=== PATIENT | male | born 1960 | race Caucasian/White ===

== ENCOUNTER 2018-10-23 14:12 | Emergency (ER) | payer BC, OTHER ==
--- NOTE | 2018-10-23 14:17 | PDOC ---
Attending Attestation - Resident Resident Name: Maximo Gallagher - ED Attending Attestation I have performed the following: I have examined & evaluated the patient, The case was reviewed & discussed with the resident, I agree w/resident's findings & plan, Exceptions are as noted - HPI HPI: 10/23/18 14:31 57 year old male c/ hx of psoriasis on immunosuppresants p/w fever and tachycardia today. ~1 week ago, scratched the right anterior mckeon on an object. Saw an urgent care and was prescribed bactrim. The cellulitis on R leg improved drastically. However, since yesterday, started to develop fevers, chills, body aches. Denies cough, nausea, vomiting, diarrhea, dysuria. - Physicial Exam PE: 10/23/18 14:58 GENERAL: Awake, alert, and fully oriented, in no acute distress HEAD: No signs of trauma EYES:EOMI, sclera anicteric, conjunctiva clear ENT: Auricles normal inspection, hearing grossly normal, nares patent, NECK: Normal ROM, supple, LUNGS: Breath sounds equal, clear to auscultation bilaterally. No wheezes, and no crackles HEART: Regular rate and rhythm, normal S1 and S2, no murmurs, rubs or gallops ABDOMEN: Soft, nontender, No guarding, no rebound. No masses EXTREMITIES: Normal range of motion, no edema. No clubbing or cyanosis. No cords, erythema, or tenderness NEUROLOGICAL: Cranial nerves II through XII grossly intact. Normal speech, normal gait SKIN: Warm, Dry, normal turgor, no rashes or lesions noted. RLE with well-healed wound on right anterior mckeon. - Medical Decision Making 10/23/18 14:58 Vital Signs Temp Pulse Resp BP Pulse Ox 102.4 F H 130 H 20 180/103 H 100 10/23/18 14:14 10/23/18 14:14 10/23/18 14:14 10/23/18 14:14 10/23/18 14:14 Differential: influenza, viral syndrome, bactermia, URI I agree with resident's plan. Sepsis protocol, IVF, and empiric antibiotics. Chest xray, labs, and reassess. 10/23/18 15:25 Chest xray reviewed by me, pending official radiology read. No infiltrates. CBC, BMP 10/23/18 14:40 10/23/18 14:40 CMP Sodium 133 mmol/L (136-145) L 10/23/18 14:40 Potassium 4.4 mmol/L (3.5-5.1) 10/23/18 14:40 Chloride 98 mmol/L (98-107) 10/23/18 14:40 Carbon Dioxide 25 mmol/L (22-28) 10/23/18 14:40 Anion Gap 10 MMOL/L (8-16) 10/23/18 14:40 BUN 15 mg/dl (7-18) 10/23/18 14:40 Creatinine 1.3 mg/dl (0.6-1.3) 10/23/18 14:40 Creat Clearance w eGFR 56.70 (>60) 10/23/18 14:40 Random Glucose 110 mg/dl (74-106) H D 10/23/18 14:40 Calcium 9.1 mg/dl (8.4-10.2) 10/23/18 14:40 Total Bilirubin 0.8 mg/dl (0.2-1.0) 10/23/18 14:40 AST 48 U/L (10-42) H D 10/23/18 14:40 ALT 42 U/L (10-40) H D 10/23/18 14:40 Alkaline Phosphatase 75 U/L (32-92) 10/23/18 14:40 Total Protein 7.7 g/dl (6.4-8.3) 10/23/18 14:40 Albumin 4.5 g/dl (3.5-5.0) 10/23/18 14:40 10/23/18 17:09 Urine Test Results Urine Color [place] 10/23/18 15:00 Urine Appearance Clear 10/23/18 15:00 Urine pH 7.0 (4.5-8) 10/23/18 15:00 Ur Specific [place] 1.020 (1.010-1.035) 10/23/18 15:00 Urine Protein Negative (NEGATIVE) 10/23/18 15:00 Urine Glucose (UA) Negative (NEGATIVE) 10/23/18 15:00 Urine Ketones Negative (NEGATIVE) 10/23/18 15:00 Urine Blood 1+ (NEGATIVE) H 10/23/18 15:00 Urine Nitrite Negative (NEGATIVE) 10/23/18 15:00 Urine Bilirubin Negative (NEGATIVE) 10/23/18 15:00 Ur Leukocyte Esterase Negative (NEGATIVE) 10/23/18 15:00 Influenza swab negative. After 2L of IVF and improving his fevers, pt continues to be tachycardia. Because he is immunosuppressed, and have abnormal VS, pt is high risk for bactermia and sepsis, and should be admitted for IV antibiotics and to allow cultures to grow. 10/23/18 18:23 After a lengthy discussion with the patient by the physician team and nursing team, the patient was ultimately very concerned about his high deductibles. Despite this discussion, the patient would like to leave AMA and see how he feels at home. The patient has capacity to make this decision. Will allow him to AMA with augmentin and have him return to ED for any concerning new findings. Heart Score/ECG Review #1 ECG reviewed & interpreted by me at: 14:15 10/23/18 14:17 NSR 114, no std/sona, normal axis, normal intervals, QTC 410 msec
[2018-10-23] MEDS ORDERED: SODIUM CHLORIDE 1,000 ML IV STA ×2 (14:20→15:30)
[2018-10-23] MEDS ORDERED: VANCOMYCIN 1,250 MG in DEXTROSE 5%-WATER - 250 ML IVPB ONE (14:20)
[2018-10-23] MEDS ORDERED: ACETAMINOPHEN 1000 MG/100 ML VIAL (NON FORMULARY) IVPB ONE (14:20)
[2018-10-23] MEDS ORDERED: PIPERACILLIN/TAZOB 4.5 GM 4.5 GM in DEXTROSE 5%-WATER 100 ML IVPB ONE (14:20)
[2018-10-23 14:22] VITALS: BMI 28.8
--- NOTE | 2018-10-23 14:29 | PDOC ---
History of Present Illness - General Chief Complaint: Tachycardia Stated Complaint: FEVER, HEART RACING, PAIN Time Seen by Provider: 10/23/18 14:15 - History of Present Illness Initial Comments: 10/23/18 14:24 The patient is a 57 year old male with a history of psoriasis who presents for evaluation of fever, body aches and a racing heart. The patient notes that he recently started on cosentyx several weeks ago. He noted last week a wound to his right leg and was started on bactrim by an urgent care. However 1 day ago he began experiencing complete body aches with associated fever and sensation of a racing heart prompting his presentation to the ED for further evaluation. He denies any known sick contacts as well as SOB, cough, chest pain, nausea, vomiting, abdominal pain, or changes with urination or bowel movements. Past History - Past Medical History Allergies/Adverse Reactions: Allergies Allergy/AdvReac Type Severity Reaction Status Date / Time No Known Allergies Allergy Verified 10/23/18 14:17 Home Medications: Ambulatory Orders Amox-Tr/K Cl [Augmentin - 875Mg Tablet] 1 tab PO BID #14 tablet 10/23/18 Secukinumab [Cosentyx Pen] 150 mg SQ ASDIR 10/23/18 Sulfamethoxazole/Trimethoprim [Bactrim Ds Tablet] 1 each PO BID 10/23/18 COPD: No Other medical history: PSORIASIS - Suicide/Smoking/Psychosocial Hx Smoking Status: No Smoking History: Former smoker Have you smoked in the past 12 months: No Number of Cigarettes Smoked Daily: 0 If you are a former smoker, when did you quit?: 2005 Information on smoking cessation initiated: No Hx Alcohol Use: Yes (WEEKENDS) Drug/Substance Use Hx: No Substance Use Type: None Hx Substance Use Treatment: No Review of Systems - Review of Systems Comments:: 10/23/18 14:27 Constitutional: Fever, Body aches, Fatigue. HEENT: No Rhinorrhea, nasal congestion, visual changes Cardiovascular: Racing Heart. No chest pain, syncope, lightheadedness Respiratory: No Cough, SOB, Hemoptysis, Gastrointestinal: No Abdominal pain, Nausea, Vomiting, Constipation, Diarrhea, Melena Genitourinary: No Dysuria, Frequency, Urgency, Hesitancy, Hematuria, Flank pain Musculoskeletal: No Myalgia, arthralgia Skin: No rashes, itching, bruising, pallor Neurologic: No Headache, Dizziness, Numbness, Weakness, or Tingling Psychiatric: No Hallucinations. No SI or HI *Physical Exam - Vital Signs Last Vital Signs Temp Pulse Resp BP Pulse Ox 102.4 F H 130 H 20 180/103 H 100 10/23/18 14:14 10/23/18 14:14 10/23/18 14:14 10/23/18 14:14 10/23/18 14:14 - Physical Exam Comments: 10/23/18 14:28 General Appearance: Nourished. No Apparent Distress HEENT: No Pharyngeal Erythema, Tonsillar Exudate, Tonsillar Erythema Neck: No Cervical Lymphadenopathy Respiratory/Chest: Lungs Clear, Normal Breath Sounds. No Crackles, Rales, Rhonchi, Wheezing Cardiovascular: Regular Rhythm, Tachycardic Rate. No Murmur, Gallops, Rubs Gastrointestinal/Abdominal: Normal Bowel Sounds, Soft. No Guarding, Rebound, Tenderness Musculoskeletal: No CVA Tenderness Extremity: Small scab to the right lower mckeon without area of erythema or warmth. Normal Capillary Refill Integumentary: Normal Color, Dry, Warm Neurologic: Fully Oriented, Alert, Normal Mood/Affect, Normal Response, Moderate Sedation - Procedure Monitoring Vital Signs: Procedure Monitoring Vital Signs Temperature 102.4 F H 10/23/18 14:14 Pulse Rate 130 H 10/23/18 14:14 Respiratory Rate 20 10/23/18 14:14 Blood Pressure 180/103 H 10/23/18 14:14 O2 Sat by Pulse Oximetry (%) 100 10/23/18 14:14 Heart Score/ECG Review #1 ECG reviewed & interpreted by me at: 14:23 General ECG Interpretation: Sinus Rhythm, Normal Intervals, No acute ischemic changes 10/23/18 14:23 Sinus Tachycardia HR 114 ED Treatment Course - LABORATORY CBC & Chemistry Diagram: 10/23/18 14:40 10/23/18 14:40 - RADIOLOGY Radiology Studies Ordered: Category Date Time Status CHEST X-RAY PORTABLE* [RAD] Stat Radiology 10/23/18 14:18 Ordered Medical Decision Making - Medical Decision Making 10/23/18 14:29 The patient is a 57 year old male with a history of psoriasis who presents for evaluation of fever, body aches and a racing heart. Differential includes but is not limited to: Influenza, Sepsis, Infectious, Metabolic Derangement. Given the patient's history and physical exam, we will obtain a cbc, cmp, troponin, lactate, vbg, ua, urine cultures, blood culture, influenza swab, ekg, chest plain film to evaluate further. We will treat with iv fluids, tylenol, vanc, zosyn as the patient is immunosuppressed due to the patient's cosentyx and continue to monitor and reassess while here in the ED. 10/23/18 17:35 CBC, cmp, troponin, lactate is unremarkable. UA is unremarkable. Influenza is negative. The patient has remained persistently tachycardic despite reduction in his fever and 2L iv hydration. Given the patient's fever of unknown source and persistent vital sign abnormality, we believe he requires observation admission for further management. We discussed the case with the admitting team who accepted the patient for admission. 10/23/18 18:25 The patient insists on leaving the emergency dept and is signing out against medical advice. The patient understands the risks and complications that may result from the refusal of medical care and admission which includes and permanent disability. The patient has the mental capacity of understanding the risks of refusing care and is capable of making an informed decision. The patient was instructed to return to the emergency department should he change his mind regarding medical care or should his condition worsen. The patient will be provided with augmentin for home antibiotic use and he states that he will return to the ED tomorrow for re-eval. The patient signed the Against Medical Advice form. *DC/Admit/Observation/Transfer Diagnosis at time of Disposition: Tachycardia Fever Qualifiers: Fever type: unspecified Qualified Code(s): R50.9 - Fever, unspecified - Discharge Dispostion Disposition: AGAINST MEDICAL ADVICE Condition at time of disposition: Stable - Prescriptions Prescriptions: Amox-Tr/K Cl [Augmentin - 875Mg Tablet] 1 tab PO BID #14 tablet - Referrals Referrals: Mariya Henderson MD [Primary Care Provider] - - Patient Instructions Printed Discharge Instructions: DI for Tachycardia, DI for Fever (Symptom) -- Adult Additional Instructions: Please return to the ER if you experience concerning or worsening symptoms including worsening difficulty breathing, weakness, or chest pain, fever. You are signing out against medical advice. We have sent a prescription to your pharmacy for antibiotics that you should take twice a day for 7 days. Please call to schedule a follow up appointment with your primary care provider within 2-3 days to discuss your ER visit and further management of your symptoms. - Post Discharge Activity
[2018-10-23] MEDS ORDERED: PIPERACILLIN/TAZOBACTAM 4.5 GM VIAL IVPB ONE (14:57)
[2018-10-23] MEDS ORDERED: ACETAMINOPHEN INJECTION 100 ML IVPB ONE (14:57)
[2018-10-23] MEDS ORDERED: VANCOMYCIN 1,000 MG VIAL (RESTRICTED TO ID ONLY) ONE (14:57)
[2018-10-23 15:11] LABS: BASO % 0.2 % (0-2.0); WHITE BLOOD COUNT 4.3 K/mm3 (4.0-10.8)
[2018-10-23 15:15] LABS: URINE APPEARANCE Clear; URINE BILIRUBIN Negative (NEGATIVE); URINE COLOR Amber; URINE GLUCOSE (UA) Negative (NEGATIVE); URINE KETONE Negative (NEGATIVE); URINE LEUK ESTERASE Negative (NEGATIVE); URINE NITRITE Negative (NEGATIVE); URINE PROTEIN Negative (NEGATIVE)
[2018-10-23 15:16] LABS: HEMATOCRIT 45.2 % (35.4-49); HEMOGLOBIN 15.1 GM/dl (11.7-16.9); LYMPH % 5.9 % (8-40); MCH 32.1 pg (25.7-33.7); MCHC 33.5 g/dl (32.0-35.9); MEAN CELL VOLUME 95.7 fl (80-96); MEAN PLT VOLUME 7.8 fl (7.5-11.1); NEUT % 83.9 % (42.8-82.8); PLATELET COUNT 227 K/MM3 (134-434); RBC 4.72 M/mm3 (4.00-5.60); RDW 11.2 % (11.9-15.9)
[2018-10-23 15:19] LABS: ALBUMIN 4.5 g/dl (3.5-5.0); ALK PHOS 75 U/L (32-92); ANION GAP 10 MMOL/L (8-16); BILIRUBIN,TOTAL 0.8 mg/dl (0.2-1.0); BLOOD UREA NITROGEN 15 mg/dl (7-18); CALCIUM 9.1 mg/dl (8.4-10.2); CHLORIDE 98 mmol/L (98-107); CO2 25 mmol/L (22-28); CREATININE 1.3 mg/dl (0.6-1.3); GLUCOSE,RANDOM 110 mg/dl (74-106); POTASSIUM 4.4 mmol/L (3.5-5.1); SGOT/AST 48 U/L (10-42); SGPT/ALT 42 U/L (10-40); SODIUM 133 mmol/L (136-145); TOT PROT 7.7 g/dl (6.4-8.3)
[2018-10-23 16:21] LABS: VENOUS PC02 45.1 mmHg (38-52); VENOUS PH 7.4 (7.32-7.42); VENOUS PO2 28.9 mmHg (28-48)
[2018-10-23 17:46] LABS: ACTIVATED PTT 25.2 SECONDS (25.2-36.5)
[2018-10-23 17:49] VITALS: TEMP 99.2
[2018-10-23 17:50] LABS: INR 1.22 (0.82-1.09)
[2018-10-23 17:54] LABS: PROTHROMBIN TIME (PATIENT) 13.6 SEC (10.2-13.0)
[2018-10-23 18:06] VITALS: BP 132/80; PULSE 118
[2018-10-23 18:23] LABS: URINE BACTERIA 1+ /hpf (NEGATIVE); URINE WBC 0-2 (0-2)
[2018-10-23] MEDS ORDERED: HEPARIN NA (PORCINE) 5,000 UNITS/ML 1ML VIAL SQ SCH (22:00)
--- NOTE | 2018-10-24 11:39 | EKG ---
Test Reason : Blood Pressure : / mmHG Vent. Rate : 114 BPM Atrial Rate : 114 BPM P-R Int : 122 ms QRS Dur : 074 ms QT Int : 298 ms P-R-T Axes : 069 046 081 degrees QTc Int : 410 ms SINUS TACHYCARDIA POSSIBLE LEFT ATRIAL ENLARGEMENT BORDERLINE ECG NO PREVIOUS ECGS AVAILABLE Confirmed by SUZANNE NOVAK, FELISA ([id number]) on 10/24/2018 11:39:17 AM Referred By: MEG MCKAY Confirmed By:FELISA PALACIOS MD
== END 2018-10-23 18:41 | disposition left against medical advice (07) ==
LOC: FER 14:12
PROC: 3E03329 Introduction of Other Anti-infective into Peripheral Vein, Percutaneous Approach (ICD-10-PCS; principal; 2018-10-23)
PROC: 3E0337Z Introduction of Electrolytic and Water Balance Substance into Peripheral Vein, Percutaneous Approach (ICD-10-PCS; 2018-10-23)
DX: R00.0 Tachycardia, unspecified (principal); R50.9 Fever, unspecified; L40.9 Psoriasis, unspecified; Z87.891 Personal history of nicotine dependence
CPT/HCPCS: 36415; 71045-TC-FY; 80053; 81003; 81015; 82803; 83605; 84484; 85025; 85610; 85730; 87040; 87086; 87804; 93005; 99285-25; J0131; J7030

== ENCOUNTER 2018-10-24 19:16 | Inpatient (IN) | payer OTHER ==
[2018-10-24] MEDS ORDERED: ACETAMINOPHEN 500 MG TABLET (FP) PO ONE (19:30)
--- NOTE | 2018-10-24 19:30 | PDOC ---
History of Present Illness - General History Source: Patient Exam Limitations: No Limitations - History of Present Illness Initial Comments: 10/24/18 20:24 The patient is a 57 year old male with a significant past medical history of psoriasis (on immunosuppressants) who presents to the ED with complaints fever since last night. Patient reports he developed a wound and infection to his right mckeon a week ago and was started on bactrim by Urgent Care. Patient was seen in the ED last night for fever, body aches and racing heart. Patient was supposed to be admitted last night for tachycardia and fever but he signed out AMA. He returned home and was prescribed antibiotics, last dosage was at 11:00 AM this morning. Patient returns today to the ED for a subjective fever that he developed last night. He also reports slight palpitations, diffuse headache, slight nasal congestion, diaphoresis, chills and still has pain to his right lower extremity. Patient took advil last night with no relief of present symptoms. Denies cough or shortness of breath. Denies chest pain. Denies nausea, vomiting , or diarrhea. Denies any other symptoms. PAST MEDICAL HISTORY: psoriasis (on immunosuppressants) PAST SURGICAL HISTORY: no significant history FAMILY HISTORY: no pertinent history SOCIAL HISTORY: Pt lives with family and is employed. MEDICATIONS: reviewed ALLERGIES: As per nursing notes General: +Fevers. + chills. +diaphoresis. no weakness, no weight loss HEENT:+ Nasal congestion. No change in vision. No sore throat,. No ear pain CardioVascular: +palpitations. No chest pain or shortness of breath Respiratory:No cough, or wheezing. Gastrointestinal: no nausea, vomiting, diarrhea or constipation, No rectal bleeding Genitourinary: No dysuria, hematuria, or frequency Musculoskeletal:+wound on right lower mckeon. No joint or muscle pain or swelling Neurologic: +headache. No vertigo, dizziness or loss of consciousness Psychiatric: nor depression Skin: No rashes or easy bruising Endocrine: no increased thirst or abnormal weight change Allergic: no skin or latex allergy All other systems reviewed and normal General: Well-nourished well-developed individual, no acute distress HEENT: Throat: Normal, tonsils normal, no erythema or exudate Neck: Supple, no meningeal signs, no lymphadenopathy Eyes::Pupils equal reactive and round, extraocular motion intact Chest: Nontender to palpation Cardiac: +mild tachycardia. S1-S2 normal, regular rhythm, no murmurs rubs or gallops Respiratory: Lungs clear to auscultation bilateral Abdomen: Soft, nondistended, normal bowel sounds, nontender to palpation diffusely Extremities:+ on the right lower extremity there is a old non-healing wound that was tender on palpation. No palpable collection. Erythema, Increased warmth. No ascending lymphangitis. No purulent discharge. Skin: No rashes Neuro: Alert and oriented x3, nonfocal exam, grossly intact, normal gait Psych: Normal mood and affect <Darvin Javed - Last Filed: 10/24/18 20:24> - General History Source: Patient Exam Limitations: No Limitations - History of Present Illness Initial Comments: 10/24/18 20:17 A portion of this note was documented by scribe services under my direction. I have reviewed the details of the note, within reason, and agree with the documentation with the following case summary and management plan written by me. Patient treated in the ED. Nursing notes are reviewed and incorporated into the medical decision-making. Vital signs reviewed. Assessment and plan: This is a 57-year-old male who comes in complaining of fever and chills. Patient is immunocompromised and was here yesterday for similar symptoms. Patient source is a wound on his leg that is poorly healed and now does appear to be infected. Patient left AGAINST MEDICAL ADVICE yesterday because he did not want to be admitted secondary to concerns over his insurance requiring high deductible's. Patient however does have abnormal vitals and sepsis workup initiated but minimal testing was done as per patient's request and given the fact she had a complete workup done yesterday. Patient will be given vancomycin and admitted to an inpatient bed 10/24/18 22:07 Tib-fib x-ray questionable osteomyelitis of the fibula x-ray reviewed by me Chest x-ray and EKG were not done as patient had them done yesterday. Patient will be placed in observation under the hospitalist service <Alisia Leal I - Last Filed: 10/24/18 22:08> - General Chief Complaint: Respiratory Stated Complaint: FEVER Time Seen by Provider: 10/24/18 19:21 Past History <Darvin Javed - Last Filed: 10/24/18 20:24> - Past Medical History COPD: No Other medical history: PSORIASIS - Suicide/Smoking/Psychosocial Hx Smoking Status: No Smoking History: Never smoked Have you smoked in the past 12 months: No Number of Cigarettes Smoked Daily: 0 If you are a former smoker, when did you quit?: 2005 Hx Alcohol Use: Yes (WEEKENDS) Drug/Substance Use Hx: No Substance Use Type: None Hx Substance Use Treatment: No <Alisia Leal I - Last Filed: 10/24/18 22:08> - Past Medical History Allergies/Adverse Reactions: Allergies Allergy/AdvReac Type Severity Reaction Status Date / Time No Known Allergies Allergy Verified 10/23/18 14:17 Home Medications: Ambulatory Orders Amox-Tr/K Cl [Augmentin - 875Mg Tablet] 1 tab PO BID #14 tablet 10/23/18 Secukinumab [Cosentyx Pen] 150 mg SQ ASDIR 10/23/18 *Physical Exam - Vital Signs Last Vital Signs Temp Pulse Resp BP Pulse Ox 100.6 F H 125 H 16 141/68 100 10/24/18 19:20 10/24/18 19:20 10/24/18 19:20 10/24/18 19:20 10/24/18 19:20 <Darvin Javed - Last Filed: 10/24/18 20:24> - Vital Signs Last Vital Signs Temp Pulse Resp BP Pulse Ox 100.6 F H 125 H 16 141/68 100 10/24/18 19:20 10/24/18 19:20 10/24/18 19:20 10/24/18 19:20 10/24/18 19:20 <Alisia Leal I - Last Filed: 10/24/18 22:08> Moderate Sedation - Procedure Monitoring Vital Signs: Procedure Monitoring Vital Signs Temperature 100.6 F H 10/24/18 19:20 Pulse Rate 125 H 10/24/18 19:20 Respiratory Rate 16 10/24/18 19:20 Blood Pressure 141/68 10/24/18 19:20 O2 Sat by Pulse Oximetry (%) 100 10/24/18 19:20 <Darvin Javed - Last Filed: 10/24/18 20:24> - Procedure Monitoring Vital Signs: Procedure Monitoring Vital Signs Temperature 100.6 F H 10/24/18 19:20 Pulse Rate 125 H 10/24/18 19:20 Respiratory Rate 16 10/24/18 19:20 Blood Pressure 141/68 10/24/18 19:20 O2 Sat by Pulse Oximetry (%) 100 10/24/18 19:20 <Alisia Leal I - Last Filed: 10/24/18 22:08> ED Treatment Course - LABORATORY CBC & Chemistry Diagram: 10/24/18 20:01 10/24/18 20:01 - Medications Given in the ED: ED Medications Discontinued Medications Generic Name Dose Route Start Last Admin Trade Name Jacqui PRN Reason Stop Dose Admin Acetaminophen 1,000 mg 10/24/18 19:30 10/24/18 19:41 Tylenol - PO 10/24/18 19:31 1,000 mg ONCE ONE Administration <Darvin Javed - Last Filed: 10/24/18 20:24> - LABORATORY CBC & Chemistry Diagram: 10/24/18 20:01 10/24/18 20:01 <Alisia Leal I - Last Filed: 10/24/18 22:08> *DC/Admit/Observation/Transfer - Attestations Scribe Attestion: 10/24/18 20:28 Documentation prepared by Darvin Javed, acting as medical i d sales for Alisia Leal MD <Darvin Javed - Last Filed: 10/24/18 20:24> - Discharge Dispostion Decision to Admit order: Yes <Alisia Leal I - Last Filed: 10/24/18 22:08> Diagnosis at time of Disposition: Cellulitis of right leg, Fever - Discharge Dispostion Condition at time of disposition: Stable - Referrals Referrals: Mariya Henderson MD [Primary Care Provider] - - Patient Instructions - Post Discharge Activity
[2018-10-24] MEDS ORDERED: ACETAMINOPHEN 500 MG TABLET (FP) ONE (19:39)
[2018-10-24] MEDS ORDERED: SODIUM CHLORIDE 1,000 ML IV ONE ×2 (19:55→20:14)
[2018-10-24] MEDS ORDERED: VANCOMYCIN 1 GRAM (PRE-DOCKED) 1,000 MG/250 ML BAG IVPB ONE (20:14)
[2018-10-24 20:19] LABS: BASO % 1.1 % (0-2.0); EOS % 1.6 % (0-4.5); HEMATOCRIT 41.9 % (35.4-49); LYMPH % 14.5 % (8-40); MCH 31.6 pg (25.7-33.7); MCHC 33.3 g/dl (32.0-35.9); MEAN CELL VOLUME 94.8 fl (80-96); MEAN PLT VOLUME 7.9 fl (7.5-11.1); MONO % 7.8 % (3.8-10.2); PLATELET COUNT 194 K/MM3 (134-434); RBC 4.42 M/mm3 (4.00-5.60); RDW 11.6 % (11.9-15.9); WHITE BLOOD COUNT 4.4 K/mm3 (4.0-10.8)
[2018-10-24 20:30] LABS: ALBUMIN 3.9 g/dl (3.5-5.0); ALK PHOS 104 U/L (32-92); ANION GAP 5 MMOL/L (8-16); BILIRUBIN,TOTAL 1.3 mg/dl (0.2-1.0); BLOOD UREA NITROGEN 12 mg/dl (7-18); CALCIUM 8.7 mg/dl (8.4-10.2); CHLORIDE 101 mmol/L (98-107); CO2 23 mmol/L (22-28); GLUCOSE,RANDOM 122 mg/dl (74-106); POTASSIUM 4.2 mmol/L (3.5-5.1); SGOT/AST 114 U/L (10-42); SGPT/ALT 125 U/L (10-40); SODIUM 129 mmol/L (136-145)
[2018-10-24] MEDS ORDERED: VANCOMYCIN 1,000 MG VIAL (RESTRICTED TO ID ONLY) ONE (20:33)
[2018-10-24] MEDS ORDERED: PIPERACILLIN/TAZOB 3.375 GM 3.375 GM in DEXTROSE 5%-WATER - 50 ML IVPB ONE (22:28)
[2018-10-24] MEDS ORDERED: PIPERACILLIN/TAZOBACTAM 3.375 GM VIAL IVPB ONE (22:35)
[2018-10-24] MEDS ORDERED: LOPERAMIDE HCL 2 MG CAPSULE PO ONE (22:44)
[2018-10-24] MEDS ORDERED: LOPERAMIDE HCL 2 MG CAPSULE ONE (22:46)
[2018-10-24] MEDS ORDERED: ACETAMINOPHEN 500 MG TABLET (FP) PO PRN (23:18)
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
[2018-10-25] MEDS: SODIUM CHLORIDE 1,000 ML IV SCH ×2 (01:21→23:15)
[2018-10-25] MEDS ORDERED: LOPERAMIDE HCL 2 MG CAPSULE PO PRN (01:37)
[2018-10-25 01:45] VITALS: BMI 29.3
[2018-10-25 09:25] LABS: HEMATOCRIT 36.6 % (35.4-49); HEMOGLOBIN 12.6 GM/dl (11.7-16.9); MCH 33.3 pg (25.7-33.7); MCHC 34.6 g/dl (32.0-35.9); MEAN CELL VOLUME 96.3 fl (80-96); MEAN PLT VOLUME 8.1 fl (7.5-11.1); PLATELET COUNT 173 K/MM3 (134-434); RDW 11.6 % (11.9-15.9); WHITE BLOOD COUNT 4.8 K/mm3 (4.0-10.8)
[2018-10-25 09:30] LABS: ANION GAP 5 MMOL/L (8-16); BLOOD UREA NITROGEN 11 mg/dl (7-18); CALCIUM 8.1 mg/dl (8.4-10.2); CHLORIDE 105 mmol/L (98-107); CO2 25 mmol/L (22-28); CREATININE 0.9 mg/dl (0.6-1.3); GLUCOSE,RANDOM 127 mg/dl (74-106); SODIUM 135 mmol/L (136-145)
[2018-10-25 09:40] LABS: ALBUMIN 3.3 g/dl (3.5-5.0); BILIRUBIN,DIRECT 0.4 mg/dL (0.0-0.3); BILIRUBIN,TOTAL 0.9 mg/dl (0.2-1.0); TOT PROT 6.2 g/dl (6.4-8.3)
[2018-10-25] MEDS ORDERED: FLU VACCINE QUAD 60 MCG/0.5 ML (MDV 18-19) IM ONE (10:00)
[2018-10-25] MEDS: HEPARIN NA (PORCINE) 5,000 UNITS/ML 1ML VIAL SQ SCH ×2 (10:15→22:13)
[2018-10-25] MEDS ORDERED: AMPICILLIN NA/SULBACTAM NA 3 GM in SODIUM CHLORIDE 100 ML IVPB SCH (10:45)
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
[2018-10-25] MEDS ORDERED: TETANUS AND DIPHTHERIA TOXOID 0.5 ML DISP.SYRIN IM ONE (18:06)
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
[2018-10-25] MEDS ORDERED: PIPERACILLIN/TAZOB 4.5 GM 4.5 GM in DEXTROSE 5%-WATER 100 ML IVPB SCH (18:30)
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
[2018-10-25] MEDS ORDERED: DEXTROSE 5%-WATER 100 ML IVPB ONE (22:06)
[2018-10-25] MEDS ORDERED: PIPERACILLIN/TAZOBACTAM 4.5 GM VIAL IVPB ONE (22:06)
[2018-10-25] MEDS: PIPERACILLIN/TAZOB 4.5 GM 4.5 GM in DEXTROSE 5%-WATER 100 ML IVPB SCH (22:14)
[2018-10-26] MEDS ORDERED: DEXTROSE 5%-WATER 100 ML IVPB ONE ×2 (05:32→10:32)
[2018-10-26] MEDS ORDERED: PIPERACILLIN/TAZOBACTAM 4.5 GM VIAL IVPB ONE ×2 (05:32→10:32)
[2018-10-26] MEDS: PIPERACILLIN/TAZOB 4.5 GM 4.5 GM in DEXTROSE 5%-WATER 100 ML IVPB SCH ×2 (05:38→14:19)
[2018-10-26] MEDS: IBUPROFEN 400 MG TABLET (FP) PO PRN ×2 (06:24→15:18)
[2018-10-26 08:06] LABS: HBSAG SCREEN Negative (Negative); HEP A AB, IGM Negative (Negative); HEP B CORE AB, TOT Negative (Negative)
[2018-10-26 09:30] LABS: BASO % 0.4 % (0-2.0); EOS % 5.1 % (0-4.5); HEMATOCRIT 36.3 % (35.4-49); HEMOGLOBIN 12.6 GM/dl (11.7-16.9); LYMPH % 30.5 % (8-40); MCH 32.8 pg (25.7-33.7); MCHC 34.6 g/dl (32.0-35.9); MEAN CELL VOLUME 94.8 fl (80-96); MEAN PLT VOLUME 8.5 fl (7.5-11.1); PLATELET COUNT 200 K/MM3 (134-434); RBC 3.83 M/mm3 (4.00-5.60); RDW 11.7 % (11.9-15.9); WHITE BLOOD COUNT 4.8 K/mm3 (4.0-10.8)
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
[2018-10-26 09:38] LABS: ALBUMIN 3.5 g/dl (3.5-5.0); ALK PHOS 98 U/L (32-92); ANION GAP 9 MMOL/L (8-16); BILIRUBIN,TOTAL 0.8 mg/dl (0.2-1.0); BLOOD UREA NITROGEN 9 mg/dl (7-18); CALCIUM 8.5 mg/dl (8.4-10.2); CHLORIDE 102 mmol/L (98-107); CO2 25 mmol/L (22-28); CREATININE 0.9 mg/dl (0.6-1.3); GLUCOSE,RANDOM 107 mg/dl (74-106); POTASSIUM 3.7 mmol/L (3.5-5.1); SGOT/AST 48 U/L (10-42); SGPT/ALT 84 U/L (10-40); SODIUM 136 mmol/L (136-145); TOT PROT 6.4 g/dl (6.4-8.3)
[2018-10-26] MEDS: HEPARIN NA (PORCINE) 5,000 UNITS/ML 1ML VIAL SQ SCH (10:05)
[2018-10-26 14:02] VITALS: BP 151/83; PULSE 88; TEMP 98.3
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
[2018-10-26] MEDS ORDERED: HEPARIN NA (PORCINE) 5,000 UNITS/ML 1ML VIAL SQ SCH (22:00)
[2018-10-26] MEDS ORDERED: CEPHALEXIN MONOHYDRATE 500 MG CAPSULE (UD) PO ONE (22:00)
== END 2018-10-26 17:00 | disposition home or self-care (01) | DRG 720 ==
LOC: FER 19:16 → FM/S 23:01
PROVIDERS: ADMIT Internal Medicine; ATTEND Registered Nurse
DX: A41.9 Sepsis, unspecified organism (principal); E66.01 Morbid (severe) obesity due to excess calories; K76.0 Fatty (change of) liver, not elsewhere classified; L40.9 Psoriasis, unspecified; L03.115 Cellulitis of right lower limb; R19.7 Diarrhea, unspecified; R74.0 Nonspecific elevation of levels of transaminase and lactic acid dehydrogenase [LDH]; R94.5 Abnormal results of liver function studies; Z68.29 Body mass index [BMI] 29.0-29.9, adult
CPT/HCPCS: 36415; 73590-TC-RT-FY; 73718-TC; 74177-TC; 76705-TC; 80048; 80053; 80076; 83605; 85025; 85027; 85651; 86140; 86704; 86706; 86708; 87040; 87340; 99283-25; J1644; J7030

== ENCOUNTER 2021-01-05 15:54 | Emergency (ER) | payer OTHER ==
[2021-01-05 16:06] VITALS: BP 143/87; PULSE 98; TEMP 99; BMI 27.3
[2021-01-05] MEDS ORDERED: NAPROXEN 500 MG TABLET PO ONE (16:47)
[2021-01-05] MEDS ORDERED: NAPROXEN 500 MG TABLET ONE (16:50)
== END 2021-01-05 18:25 | disposition home or self-care (01) ==
LOC: FER 15:54
DX: M25.561 Pain in right knee (principal)
CPT/HCPCS: 73562-TC-RT-FY; 99283-25